=== PATIENT | female | born 2000 | race Caucasian/White ===

== ENCOUNTER → 2020-10-29 | Outpatient (CLI) | payer BC | END | disposition home or self-care (01) | LOC: CFH 06:51 | PROVIDERS: ATTEND Internal Medicine Cardiovascular Disease | DX: R01.1 Cardiac murmur, unspecified (principal) | CPT/HCPCS: 93306 ==

== ENCOUNTER 2020-11-23 09:42 | Emergency (ER) | payer BC, OTHER ==
[~2020-11-23] VITALS: Ht 162.6 cm; Wt 61.9 kg
[2020-11-23 09:47] VITALS: BP 125/86
--- NOTE | 2020-11-23 10:01 | NUR ---
TO [facility] FROM [facility]
--- NOTE | 2020-11-23 10:02 | NUR ---
KAELA RN: THIS IS A 20 YEAR OLD FEMALE WHO C/O OF LEFT EYE REDNESS AND ITCHINESS
[2020-11-23] MEDS ORDERED: PROPARACAINE OPHTH 0.5%, 15ML ONE (10:31)
[2020-11-23] MEDS ORDERED: FLUORESCEIN OPHTHALMIC 1 MG STRIP ONE (10:31)
--- NOTE | 2020-11-23 10:32 | NUR ---
NAYLA HAZEL AT BEDSIDE
--- NOTE | 2020-11-23 11:20 | NUR ---
DC INSTRUCTIONS REVIEWED
== END 2020-11-23 11:22 | disposition home or self-care (01) ==
LOC: ED 11:00
DX: H10.32 Unspecified acute conjunctivitis, left eye (principal); H57.12 Ocular pain, left eye
CPT/HCPCS: 99283

== ENCOUNTER 2020-12-15 11:54 | Outpatient (CLI) | payer OTHER | END 2020-12-15 23:59 | disposition home or self-care (01) | LOC: CVU 11:54 | PROVIDERS: ATTEND Internal Medicine Cardiovascular Disease | DX: Q23.1 Congenital insufficiency of aortic valve (principal) | CPT/HCPCS: 93306 ==